=== PATIENT | female | born 1985 | race Caucasian/White ===

== ENCOUNTER → 2025-05-07 16:47 | Outpatient (REF) | payer OTHER, SELFPAY | LOC: RAD 16:47 | PROVIDERS: ATTENDING PHYSICIAN Nurse Practitioner Adult Health | DX: M79.605 Pain in left leg (principal) | CPT/HCPCS: 93971 ==

== ENCOUNTER → 2025-07-18 10:32 | Outpatient (REF) | payer OTHER, SELFPAY | LOC: PNTC 10:32 | PROVIDERS: ATTENDING PHYSICIAN Obstetrics & Gynecology | DX: Z32.01 Encounter for pregnancy test, result positive (principal) | CPT/HCPCS: 76801 ==

== ENCOUNTER → 2025-08-06 11:18 | Outpatient (REF) | payer OTHER, SELFPAY | LOC: PNTC 11:18 | PROVIDERS: ATTENDING PHYSICIAN Obstetrics & Gynecology | DX: Z36.0 Encounter for antenatal screening for chromosomal anomalies (principal); Z36.82 Encounter for antenatal screening for nuchal translucency | CPT/HCPCS: 76801; 76813 ==

== ENCOUNTER 2025-08-13 18:16 | Emergency (ER) | payer OTHER, SELFPAY ==
[2025-08-13 18:19] VITALS: BP 117/90
[2025-08-13 18:46] LABS: Urine Character Clear (Clear)
[2025-08-13 19:31] VITALS: BMI 23.3
[2025-08-13 19:32] VITALS: BP 89/44
[2025-08-13 19:35] LABS: Urine Squamous Cell >30 /LPF (Few)
[2025-08-13 19:36] LABS: Urine Red Blood Cell 0-2 /HPF (0-2)
[2025-08-13] MEDS: TORADOL 30 MG IM (19:37)
[2025-08-13 20:00] VITALS: BP 89/44
[2025-08-13] MEDS: NSS 1000 IV (20:46)
[2025-08-13] MEDS: ZOFRAN 4 MG IV (20:47)
[2025-08-13] MEDS: MORPHINE SULFATE 4 MG IV (20:48)
[2025-08-13 20:50] LABS: Hematocrit 35.2 % (37.0-47.0); Hemoglobin 11.7 g/dL (12.0-16.0); Mean Corp Hgb Conc. 33.2 g/dL (33.0-37.0); Mean Corpuscular Volume 92.9 fL (81.0-99.0); Nucleated Red Blood Cells % 0 %; Platelet Count 221 10^3/uL (130-400); Red Cell Dist. Width 13.1 % (11.5-14.5)
[2025-08-13 21:00] VITALS: BP 109/66
[2025-08-13 21:11] LABS: Blood Urea Nitrogen 10 mg/dl (7-17); Calcium 9.4 mg/dl (8.4-10.2); Carbon Dioxide 24 mmol/L (22-30); Chloride 106 mmol/L (98-107); Estimated Creatinine Clearance 122 ml/min; Glucose 85 mg/dl (70-99); Potassium 3.7 mmol/L (3.5-5.1); Sodium 135 mmol/L (135-145); eGFR > 60.00
[2025-08-13 22:00] VITALS: BP 115/75
[2025-08-13] MEDS: DILAUDID 0.5 MG IV (22:59)
[2025-08-14] VITALS: BP 104/64
--- NOTE | 2025-08-14 00:32 | ED.GENMED ---
History of Present Illness
General
Chief Complaint: Problems
Source: patient
Time Seen by Provider: 08/13/25 19:08
History of Present Illness
History of Present Illness:
Note:
CHIEF COMPLAINT(S)
Abdominal pain and concern about miscarriage following ultrasound findings of no heartbeat.
HISTORY OF PRESENT ILLNESS
The patient is a 40-year-old female who presented to the emergency department in the context of early with a recent concerning finding of absent heartbeat on ultrasound. She reported the onset of severe, sharp abdominal pain around 4
PM, localized to the left upper quadrant. The pain was described as significant, causing difficulty ambulating. The patient noted, 'The pain would just take my breath away,' and it was characterized by episodes of worsening intensity. There has been
no associated vaginal bleeding or urinary symptoms. The patient has a history of two prior pregnancies resulting in delivery by section and has experienced two miscarriages earlier. She expressed uncertainty about whether these symptoms
could indicate contractions due to the gestational stage. 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 Aguilar, who advised managing the pain with ibuprofen. However, the patient experienced persistent pain despite taking 200 mg of ibuprofen. She
remains concerned about the cause of the pain and requested additional pain management.
PAST MEDICAL AND SURGICAL HISTORY
The patient has a history of sections.
ADDITIONAL HISTORY OBTAINED FROM SOURCES OTHER THAN THE PATIENT
The patient mentioned previous advice from her asbestos textile supervisor to manage pain with ibuprofen and that no heartbeat was detected during an ultrasound conducted earlier in the department.
EXTERNAL RECORDS REVIEWED
An ultrasound performed earlier today indicated an absence of heartbeat.
SOCIAL HISTORY
The patient is the mother of two children and has had two previous miscarriages. She is currently for the fifth time.
REVIEW OF SYSTEMS
- Gastrointestinal: Reports sharp, left upper quadrant abdominal pain. Denies any nausea or vomiting.
- Genitourinary: Denies vaginal bleeding or urinary symptoms.
- Systemic: No fever reported.
PHYSICAL EXAM
General: Patient is alert, in mild distress due to pain.
Abdomen: Soft, nontender, no obvious guarding or rebound tenderness. Reviewed areas indicate no focal tenderness upon palpation.
PROBLEM LIST
- Acute: Severe abdominal pain in early , likely contractions without associated labor.
- Chronic: History of sections, and recurrent loss.
PLAN
1. Initiate pain management with intramuscular Ketorolac (Toradol).
2. Educate the patient about pain management options including continuing with ibuprofen or adding narcotics as necessary.
3. Coordinate care with obstetrics for ongoing management considering lack of heartbeat.
4. Monitor patients comfort and pain levels with follow-up.
DIFFERENTIAL DIAGNOSIS
The Differential Diagnosis includes, in no particular order and is not limited to:
1. Placental abruption
2. Threatened miscarriage
3. Labor pain
4. Ectopic
5. Gastrointestinal causes such as gastroenteritis
6. Uterine rupture
7. Ovarian torsion
8. Pelvic inflammatory disease
9. Musculoskeletal strain
10. Renal colic
Disposition:
SUMMARY OF ENCOUNTER
A 40-year-old female presented with left-sided upper quadrant and flank pain. Earlier in the day, she was diagnosed with intrauterine demise via ultrasound. Upon arrival, the patient was experiencing persistent left-sided pain, suspecting it
was related to the miscarriage. Despite the pain, the patient has experienced no hypoxia, tachycardia, tachypnea, or fever. Clinical evaluation ruled out concerns for deep vein thrombosis (DVT) and pulmonary embolism. A CT scan of the abdomen
revealed no hydronephrosis or nephrolithiasis, and no evidence of other extraneous pathologies. Her symptoms improved significantly with pain medication.
ASSESSMENT
The left-sided abdominal pain may be related to the reported demise, but there are no immediate signs of complications like DVT or pulmonary embolism. Specifically, there is no tachycardia, tachypnea or hypoxia to suggest pulmonary embolism
and her abdomen is clearly tender to palpate. The findings do not suggest kidney stones or related complications.
EMERGENCY TREATMENTS ADMINISTERED
Pain medication was administered, improving the patients symptoms.
MANAGEMENT OF THE PATIENTS CARE WAS DISCUSSED WITH
The case was discussed with Dr. Conn, her OB, who agreed with treating her pain and monitoring her condition.
PLAN
The patient will monitor symptoms closely and follow up this week with her OB for planned outpatient management of the demise. If symptoms persist, the patient is advised to return.
INDEPENDENT REVIEW OF LABS AND INTERPRETATION OF TESTS
- My independent review of the complete blood count (CBC) indicated a normal white blood cell count; hemoglobin was 11.7.
- My independent review of chemistry panels returned normal results.
- My independent review of urinalysis showed 1+ blood, no white cells, and negative nitrites.
- My independent CT interpretation of the abdomen revealed no hydronephrosis, nephrolithiasis, or other extraneous abnormalities.
PATIENT EDUCATION AND COUNSELING
The patient was educated on monitoring her symptoms closely and instructed to return if symptoms persist or worsen. It was discussed that pain management will continue as per OBs recommendations, given the demise.
FOLLOW-UP INSTRUCTIONS
The patient should follow up this week with her OB for the planned outpatient management of the demise.
MEDICATION RECONCILIATION
Pain medication was administered during the visit, which provided symptomatic relief.
MEDICAL DECISION MAKING
-Complexity of Data Reviewed: Chronic conditions affecting care include a history of sections and recurrent loss. The Differential Diagnosis list includes placental abruption, threatened miscarriage, labor pain, ectopic ,
gastrointestinal causes, uterine rupture, ovarian torsion, pelvic inflammatory disease, musculoskeletal strain, and renal colic.
-Data:
Category 1
- External records reviewed revealed no heartbeat detected in an earlier ultrasound. Clinical information was obtained from an independent historian regarding the absence of heartbeat and the recommendation for pain management.
Category 3
- Discussion of management with Dr. Conn, the patients OB, regarding pain management in the context of demise.
-Risk:
Prescription medication was administered, and alternative pain management strategies were discussed with her OB. Consideration of Admission/Observation: Escalation of care, including admission/observation, was considered given the complexity and
risk of the patients presenting complaint, exam findings, and underlying comorbidities. However, ultimately I feel the patient is safe for outpatient management with close follow-up. Reasoning: Work-up reassuring, does not reveal any acute
life/organ-threatening processes, patients symptoms well-controlled upon reevaluation, reexamination is reassuring, vitals are stable, patient agreeable with discharge, reliable for follow-up.
DIAGNOSIS
- Acute abdominal pain, ICD-10: R10.84
- Intrauterine demise, ICD-10: O36.4
Past History
Past History
ED Past Medical History: Other (Ovarian cysts)
ED Past Surgical History: Gynecological (Ovarian cyst, elective )
Social History
Tobacco: Non-smoker
Alcohol: Other
Personal:
Living: with family
Employment: Employed
Family History
Family History: Other (Grandfather with diabetes, kidney cancer, hypertension, coronary disease. Grandmother with coronary disease. Father with hypertension carotid artery disease. Mother with hypertension)
Phy Exam
Physical Exam
Physical Exam:
.
Course
Orders/Labs/Results
Orders:
Orders
08/13/25 18:27
Urine Microscopic Reflex Cult Urgent
Urine Reflex Culture from [facility] [Urinalysis Reflex To Culture] Urgent
Date Specimen was Collected: 08/13/25
Time Specimen was Collected: 18:23
08/13/25 19:32
Ketorolac [Toradol] 30 mg IM NOW STA
08/13/25 20:35
0.9% Sodium Chloride 1000 ml [Nss] 1,000 ml IV BOLUS
08/13/25 20:36
Morphine Sulfate 4 mg IV NOW STA
Ondansetron Injectable [Zofran] 4 mg IV NOW STA
08/13/25 20:42
Basic Metabolic Panel Urgent
Complete Blood Count/With Diff Urgent
08/13/25 22:56
CT Abd/pel Without Iv Or Oral Urgent
Comment: currently with intrauterine demise
Reason For Exam: L flank pain
HYDROmorphone [Dilaudid] 0.5 mg IV NOW STA
Abnormal Lab Results
08/13/25 08/13/25
18:27 20:42
RBC 3.79 L 10^6/uL
(4.20-5.40)
Hgb 11.7 L g/dL
(12.0-16.0)
Hct 35.2 L %
(37.0-47.0)
Lymphocytes % 18.9 L %
(20.5-51.1)
Creatinine 0.5 L mg/dL
(0.6-1.0)
Ur Occult Blood Reflex 1+ A
(Negative)
Urine Bacteria (Reflex) Few A
(Negative)
08/13/25 20:42
08/13/25 20:42
Vital Signs
Initial and Last Documented VS:
Initial Vital Signs
Temp Pulse Resp BP Pulse Ox
98.0 F 67 20 117/90 99
08/13/25 18:19 08/13/25 18:19 08/13/25 18:19 08/13/25 18:19 08/13/25 18:19
Last Documented Vital Signs
Temp Pulse Resp BP Pulse Ox
98.0 F 67 20 104/64 100
08/13/25 18:19 08/13/25 18:19 08/13/25 18:19 08/14/25 00:00 08/14/25 00:36
Information
Weeks gestation: N/A
Location: N/A
*Pulse Oximetry
SaO2: 100
Oxygen Mode of Delivery: Room air
Patient hypoxic: no
*Critical Care Note
Total Time (30-74mins, 75-104mins- exclusive of procedures): Not Applicable
ED Attending Note
-
Portions of this chart may have been created with voice recognition software.� Occasional wrong word or��sound alike� substitutions may have occurred due to the inherent limitations of voice recognition software.
Discharge Plan
Departure
Patient Disposition: Home (Routine Discharge)
Date of Disposition: 08/14/25
Time of Disposition: 00:35
Patient with high blood pressure during this ER visit?: No
Discharge Problem:
demise, Flank pain
Instructions: Miscarriage (DC), Flank pain - ED (DC)
Prescriptions:
New
oxycodone-acetaminophen [Percocet] 5-325 mg tablet
2 tab PO Q6HPRN PRN (Reason: pain) Qty: 12 0RF
No Action
PNV,calcium 94-bggo-sergk acid [ Vitamin Plus Low Iron] 1 TABLET tablet
1 tab PO DAILY
Referrals:
Cinthya Menezes CRNP [Family Provider, General]
Activity Restrictions/Additional Instructions:
Please be sure to follow-up with your OB tomorrow. Return immediately for chest pain, shortness of breath, coughing up blood, leg swelling, worsening pain, fevers or any other concerns. Please use ibuprofen as needed for pain control
Interventions
Interventions:
*Risk Screen - Suicide Last Done: 08/13/25 19:28
*General Assessment Last Done: 08/13/25 18:19
*Neglect/Abuse Screening Last Done: 08/13/25 19:28
*ED- Fall Risk Assessment Last Done: 08/13/25 19:28
*ED COVID-19 Vaccine History Last Done: 08/13/25 19:28
*ED Influenza Vaccine History Last Done: 08/13/25 19:28
*Nursing Disposition Last Done: 08/14/25 00:46
ED-Female Genitourinary Assessment Last Done: 08/13/25 19:23
Discharge Date and Time
Discharge Date/Time: 08/14/25 00:48
Print Language: [id number]
== END 2025-08-14 00:48 | disposition home or self-care (01) ==
LOC: EMR 18:16
PROVIDERS: Emergency Medicine; EMERGENCY PHYSICIAN Emergency Medicine; FAMILY PHYSICIAN Nurse Practitioner Adult Health
DX: O36.4XX0 Maternal care for intrauterine death, not applicable or unspecified (principal); R10.12 Left upper quadrant pain
CPT/HCPCS: 99284; 96374; 96375 ×2; 96361; 96372; 74176; 76815; 80048; 81003; 81015; 85025

== ENCOUNTER 2025-08-15 06:18 | Day surgery (SDC) | payer OTHER, SELFPAY ==
[2025-08-15] VITALS (7 sets, daily range): BP systolic 97–120; BP diastolic 52–89; BMI 23.2
[2025-08-15] MEDS: VIBRAMYCIN 260 MG IV (11:11)
[2025-08-15] MEDS: NORMOSOL-R/PLASMALYTE-A 1000 IV (11:15)
[2025-08-15] MEDS: TYLENOL 1000 MG PO (11:21)
== END 2025-08-15 13:45 | disposition home or self-care (01) ==
LOC: SDS 06:18
PROVIDERS: ATTENDING PHYSICIAN Obstetrics & Gynecology
DX: O02.1 Missed abortion (principal)
CPT/HCPCS: 59820; 76998; 86850; 86900; 86901; 88305